=== PATIENT | female | born 1965 ===

== ENCOUNTER 2021-12-16 19:14 | Outpatient (REF) | payer OTHER, SELFPAY ==
[2021-12-16 19:45] LABS: COVID-19 Test Negative (Negative)
== END 2021-12-16 19:15 | disposition home or self-care (01) ==
LOC: HO.LAB 19:14
PROVIDERS: Visit Provider Internal Medicine
DX: Z20.822 Contact with and (suspected) exposure to COVID-19 (principal)
CPT/HCPCS: 87635

== ENCOUNTER 2022-08-07 15:56 | Emergency (ER) | payer BC, OTHER, SELFPAY ==
--- NOTE | ~2022-08-07 | XR_ITS ---
EXAMINATION: XR WRIST, RIGHT XR HAND, RIGHT CLINICAL INFORMATION: Fourth digit pain status post fall. COMPARISON: None available. TECHNIQUE: PA, lateral, and oblique views of the right wrist and PA, lateral, and oblique views of the right hand. An indicator arrow points to the fourth digit. FINDINGS: RIGHT WRIST: The bones and soft tissues are normal. No fracture. Alignment is anatomic. Joint spaces are maintained. No erosions or soft tissue calcifications. RIGHT HAND: The bones and soft tissues are normal. No fracture. Alignment is anatomic. Joint spaces are maintained. No erosions or soft tissue calcifications. XR/XR hand wrist RT IMPRESSION: Normal right hand and wrist. Specifically, the fourth digit is unremarkable.
[2022-08-07 16:03] VITALS: BP 151/81; PULSE 76; RESP 18; TEMP 36.2; O2SAT 97; BMI 30.7
--- NOTE | 2022-08-07 16:05 | ED.EXTPRO ---
HPI - Extremity Problem General Chief complaint: Extremity Injury, Upper Stated complaint: finger injury Time Seen by Provider: 08/07/22 17:08 Source: patient Mode of arrival: ambulatory Limitations: no limitations History of Present Illness HPI Narrative: 56 yold female presents to the ED for right 4th finger pain. patient states she tripped and she tried to break her fall with her hand. patient denies hitting head, loss of conscisouness, or any other trauma. patient denies any other physical complaints. Related Data Previous Rx's Medication Instructions Recorded paroxetine HCl 40 mg tablet 40 mg PO DAILY #90 tabs 08/06/21 naproxen 500 mg tablet 500 mg PO BID PRN pain 10 days #20 08/07/22 tabs Allergies Allergy/AdvReac Type Severity Reaction Status Date / Time egg Allergy Severe Anaphylaxis Verified 08/07/22 16:02 mushroom Allergy Mild tingling, Verified 08/07/22 16:02 rash yeast Allergy Intermediate wheezing, Uncoded 11/05/20 16:05 hard to breathe Review of Systems Review of Systems: Right 4th finger pain. Yes all other systems are reviewed and are negative COUNT INCLUDES [facility] Past Medical History Surgical History No pertinent past surgical history Family History Family History (Updated 12/19/21 @ 07:28 by Michelle Car RN) Mother Colon cancer Father No problems noted. Social History Social History Housing: Apartment Alcohol intake: current Patient Tobacco Use Status: Never used Tobacco e-Cigarette/Vaping Use: Never Used Advance Directives: No Advance Directives Information Provided: No service: No Current occupational status: employed Physical Exam Vital Signs: Vital Signs: Last Vital Signs Temp 97.2 F 08/07/22 16:03 Pulse 76 08/07/22 16:03 Resp 18 08/07/22 16:03 BP 151/81 H 08/07/22 16:03 Pulse Ox 97 08/07/22 16:03 O2 Del Method Room Air 08/07/22 16:03 BMI result Body Mass Index 30.7 Const: General: cooperative, healthy appearing, comfortable, no acute distress, well developed, alert, awake and Physically active Orientation/consciousness: oriented to person, oriented to place, oriented to time and patient oriented x3 HEENT: Head: Yes normal to inspection, Yes No palpable skull fracture present, Yes normocephalic, Yes atraumatic and No abrasion Ears: hearing grossly normal bilaterally, external ears normal, TM's normal bilaterally, EAC's normal, mastoids normal and no periauricular adenopathy Eyes: General: appearance normal, both eyes and all related structures Neck: Neck: Yes normal visual inspection, Yes full ROM, Yes no lymphadenopathy, Yes no meningeal signs, Yes trachea midline, Yes supple, No anterior neck swelling and No tender Chest: Chest palpation & inspection: normal inspection of the chest and normal palpation of entire chest wall Resp: Effort & Inspection: normal respiratory effort and able to speak in complete sentences Auscultation: clear to auscultation bilaterally Cardio: Jugular venous distension: no JVD Heart sounds: S1 normal heart sound present and S2 normal heart sound present GI: Inspection: Yes normal to inspection and No abdominal wall ecchymosis Palpation (GI): Soft to palpation, not firm, nontender, no guarding and not rigid : General: No CVA tenderness and Yes no CVA tenderness Back/Spine/Pelvis: Back: no CVA tenderness, No CVA tenderness and No back tenderness Skin: General skin exam: no rashes or lesions noted and elasticity normal Neuro: General: oriented to person, oriented to place, oriented to time, patient oriented x3, gait normal, tone normal, moves all extremities, Normal light touch and pain sensation, no meningeal signs, no focal motor deficits, CN's II-XI intact bilaterally and normal sensation to monofilament Extrem: General: Yes normal to inspection and Yes full ROM Hand/finger images: 1. Ecchymosis with slight swelling on palpation. Positive for tenderness but negative for crepitus. Capillary refill is intact. Able to move finger but with pain. Whole extremity motor/neuro/medical exam intact Psych: Appearance: grossly normal, well kempt and not disheveled Course Course Course Narrative: RME: 56 yold female presents to the ED for right 4th finger injury after trying to break her fall. denies any head trauma. Finger is swollen Medical Decision Making Medical Decision Making MDM Narrative: 56 yold female presents to the ED for right 4th finger pain while trying to break her fall. Patient denies any head, loss of consciousness, or any other trauma. Patient states she slipped and fell. Right 4th finger slightly swollen and ecchymotic. Rest of physical exam a body normal. X-ray is normal. Patient placed in finger splint. Differential Diagnosis Differential Diagnoses: The differential diagnosis associated with the presentation includes (Finger fracture, finger dislocation, wrist fracture, forearm fracture, brain bleed, skull fracture, cervical spine fracture.) Independent Interpretation I performed an independent interpretation of an: Plain X-Ray Radiology Impression Discussion of test interpretation with radiology: I have reviewed the radiologist's reading. Prescription Management I considered prescription management with: Pain Medication (naproxen) Discharge Plan Discharge Clinical Impression: Finger sprain, Contusion Patient Disposition: Home, Self-Care Instructions: Contusion in Adults (ED), Finger Sprain (ED), R.I.C.E. Treatment (ED) Additional Instructions: your're x-rays came back negative for fracture. Please follow-up with your primary care provider. Return to the ED immediately for worsening pain, increased swelling, redness, pus discharge, foul odor, bluish black discoloration, or any other concerning symptoms. Prescriptions: New naproxen 500 mg tablet 500 mg PO BID PRN (Reason: pain) 10 Days Qty: 20 0RF No Action paroxetine HCl 40 mg tablet 40 mg PO DAILY Qty: 90 3RF Stand Alone Forms: Work/School Release Interventions: ED Discharge Assessment Last Done: 08/07/22 17:29 Discharge Date/Time: 08/07/22 17:30 Print Language: Salvadorean
--- NOTE | 2022-08-07 16:19 | PC.NURSE ---
pt brought back from waiting room, obvious swelling to R ring finger with 6/10 pain
== END 2022-08-07 17:30 | disposition home or self-care (01) ==
PROVIDERS: Emergency Provider Internal Medicine; PCP Family Medicine
DX: S63.614A Unspecified sprain of right ring finger, initial encounter (principal); S60.041A Contusion of right ring finger without damage to nail, initial encounter; M25.531 Pain in right wrist; X58.XXXA Exposure to other specified factors, initial encounter; Y93.9 Activity, unspecified; Y92.9 Unspecified place or not applicable; Y99.9 Unspecified external cause status
CPT/HCPCS: 29130; 73110; 73130; 99282

== ENCOUNTER → 2023-02-08 14:07 | Outpatient (BNVA) | payer BC, OTHER, SELFPAY | PROVIDERS: PCP Family Medicine; Visit Provider Physician Assistant Surgical ==

== ENCOUNTER 2023-05-09 10:15 | Outpatient (AMB) | payer OTHER, BC, SELFPAY ==
[2023-05-09 10:19] VITALS: BP 122/70; PULSE 78; O2SAT 98; BMI 30.2
--- NOTE | 2023-05-09 10:19 | MHC.PC.OV ---
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 Intake Note: Patient is a new patient here to establish care Door Clamp Operator Required: No Allergies egg Allergy (Severe, Verified 05/09/23 10:26) Anaphylaxis mushroom Allergy (Mild, Verified 05/09/23 10:26) tingling, rash yeast Allergy (Intermediate, Uncoded 05/09/23 10:26) wheezing, hard to breathe Medication List - Last Reconciled 05/09/23 by Sha Cloud MD clonazepam 1 mg PO BEDTIME PRN [JUICE PLUS 6 caps PO .QD] magnesium 200 mg PO DAILY [meta relax drink] paroxetine HCl 40 mg PO DAILY [PROBIOTIC 1 cap PO .QD] Tobacco use date assessed: 05/09/23 Dental Screening Dental Screen Date: 05/09/23 Did you have a dental visit in the last 12 months?: Yes Did you have a dental problem in the last 6 months where you did not have access to dental care?: No Was dental information given to patient?: Patient has dentist HPI 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 Review of the notes follows up with orthopedics seen in February 2023 for right 5th toe proximal phalanx fracture conservative management. [facility] Medical History (Updated 05/09/23 @ 11:10 by Sha Cloud MD) Encounter for weight management Class 1 obesity with body mass index (BMI) of 31.0 to 31.9 in adult Laboratory examination ordered as part of a routine general medical examination Seizure PUD (peptic ulcer disease) Immunization counseling Family history of colon cancer Obese Anxiety and depression Surgical History (Updated 02/08/23 @ 14:48 by Laurel Emanuel CMA) Hx of oral surgery Hx of colonoscopy No pertinent past surgical history Family History (Updated 05/09/23 @ 11:12 by Sha Cloud MD) Mother Colon cancer Father Skin cancer Brother Heart attack, Onset Age: 40 Maternal Grandfather Heart attack Sister CAD (coronary artery disease) Social History (Updated 05/09/23 @ 11:13 by Sha Cloud MD) Housing: Apartment Alcohol intake: current Alcohol intake frequency: holidays/special occasions only Comment: once Q 4 months 2 drinks Patient Tobacco Use Status: Never used Tobacco e-Cigarette/Vaping Use: Never Used service: No Current occupational status: employed Cognitive needs: No Hearing needs: No Vision needs: No Questionnaire PHQ-9 Over the last 2 weeks, how often have you been bothered by any of the following problems? 1. Little interest or pleasure in doing things: several days 2. Feeling down, depressed, or hopeless: nearly every day 3. Trouble falling or staying asleep, or sleeping too much: more than half the days 4. Feeling tired or having little energy: more than half the days 5. Poor appetite or overeating: nearly every day 6. Feeling bad about yourself - or that you are a failure or have let yourself or your family down: more than half the days 7. Trouble concentrating on things, such as reading the newspaper or watching television: more than half the days 8. Moving or speaking so slowly that other people could have noticed. Or the opposite - being so fidgety or restless that you have been moving around a lot more than usual: several days 9. Thoughts that you would be better off or of hurting yourself in some way: not at all Total score: 16 Depression Screening Interpretation: Positive Depression Screening Follow-up: Existing condition Depression Screening Done: Yes Source: Developed by Drs. Soren Dennison, Chelsea Mcqueen, Puma Gurrola and colleagues, with an educational libia from [employer]. Thrive Questionnaire Date Thrive assessed: 05/09/23 I am a: Patient What is your living situation today?: I have a steady place to live Within the past 12 months, did the food you bought not last and you didn't have the money to get more?: Never true Within the past 12 months, did you worry whether your food would run out before you got money to buy more?: Never true Do you have trouble paying for medicines?: No Do you have trouble getting transportation to medical appointments?: No Do you have trouble paying your heating and electricity bill?: No Do you have trouble taking care of your child, family member or friend?: No Do you have trouble with day-to-day activities such as bathing, preparing meals, shopping, managing finances, etc.?: No Are you currently unemployed and looking for a job?: No Are you interested in more education?: No Please select the resources that you would like help with: None THRIVE Score: 0 AUDIT C Alcohol Use Questionnaire (AUDIT-C) 1. How often do you have a drink containing alcohol?: Monthly or less 2. How many drinks containing alcohol do you have on a typical day when you are drinking?: 1 or 2 3. How often do you have six or more drinks on one occasion?: Never Total Score: 1 JOHANNY-7 AMB Questionnaire JOHANNY-7 Date JOHANNY - 7 assessed: 05/09/23 Feeling nervous, anxious, or on edge: 1 = Several days Not being able to stop or control worryin = Several days Worrying too much about different things: 1 = Several days Trouble relaxin = Several days Being so restless that it is hard to sit still: 1 = Several days Becoming easily annoyed or irritable: 0 = Not at all Feeling afraid as if something awful might happen: 1 = Several days Total JOHANNY-7 score (0-4 normal; 5-9 mild; 10-14 moderate; 15-21 severe): 6 Source: Developed by Drs. Soren Dennison, Chelsea Mcqueen, Puma Gurrola and colleagues, with an educational libia from [employer]. Physical exam (Primary Care) Vital Signs: Last Vital Signs Pulse 78 05/09/23 10:19 BP 122/70 05/09/23 10:19 Pulse Ox 98 05/09/23 10:19 Oxygen Delivery Method Room Air 05/09/23 10:19 BMI result Body Mass Index 30.2 Tobacco/Smoking Status: Tobacco use Status Tobacco use date assessed 05/09/23 05/09/23 10:21 Patient Tobacco Use Status Never used Tobacco 05/09/23 11:13 e-Cigarette/Vaping Use Never Used 05/09/23 11:13 PHQ-9: PHQ-9 Score PHQ-9: Total score 16 05/09/23 11:21 Depression Screening Interpretation: Positive Depression Screening Follow-up: Existing condition Thrive Assessment: Date of Thrive Assessment Date Thrive assessed 05/09/23 05/09/23 10:21 Const General: alert; No acute distress Eyes Conjunctivae: conjunctivae normal Resp Auscultation: clear to auscultation bilaterally Cardio Rate: regular rate Rhythm: regular rhythm GI Inspection: Yes normal to inspection Extrem General: Yes normal to inspection and No edema Assessment and Plan Assessment & Plan (1) Impaired glucose tolerance: Code(s): R73.02 - Impaired glucose tolerance (oral) Plan: Decrease the amount of carbohydrate intake, pasta, bread, rice and potatoes are all sugar and that is aside from all the sweet stuff, remember that fruits are good but they are Sweet also. (2) Generalized anxiety disorder: Code(s): F41.1 - Generalized anxiety disorder Plan: Continue with therapy (3) Obesity (BMI 30.0-34.9): Code(s): E66.9 - Obesity, unspecified Plan: Diet and exercise (4) Screening for colon cancer: Code(s): Z12.11 - Encounter for screening for malignant neoplasm of colon (5) Breast cancer screening by mammogram: Code(s): Z12.31 - Encounter for screening mammogram for malignant neoplasm of breast (6) Screening for cervical cancer: Code(s): Z12.4 - Encounter for screening for malignant neoplasm of cervix (7) Elevated fasting blood sugar: Code(s): R73.01 - Impaired fasting glucose Orders: Orders Complete Blood Count Auto Diff Today R73.02 - Impaired glucose tolerance (oral) Free T4 (Free Thyroxine) Today R73.02 - Impaired glucose tolerance (oral) Thyroid Stimulating Hormone Today R73.02 - Impaired glucose tolerance (oral) Lipid Panel Today E78.00 - Pure hypercholesterolemia, unspecified, R73.02 - Impaired glucose tolerance (oral) MM tomosynthesis screening BI Today Z12.31 - Encounter for screening mammogram for malignant neoplasm of breast Hemoglobin A1c Today R73.02 - Impaired glucose tolerance (oral) Comprehensive Met. Panel Today R73.02 - Impaired glucose tolerance (oral) Vitamin B12 and Folate Today R73.02 - Impaired glucose tolerance (oral) Vitamin D 25-OH Total Today R73.02 - Impaired glucose tolerance (oral) Referrals Gastroenterology Referral Z12.11 - Encounter for screening for malignant neoplasm of colon Psychiatry Referral F41.1 - Generalized anxiety disorder SMALL PIECE CUTTER Referral Z12.4 - Encounter for screening for malignant neoplasm of cervix Medications: New gabapentin 300 mg PO DAILY PRN 30 caps 0RF Shingles F41.1 - Generalized anxiety disorder clonazepam 1 mg PO BEDTIME PRN 10 tabs 0RF anxiety F41.1 - Generalized anxiety disorder Refilled paroxetine HCl 40 mg PO DAILY 90 tabs 0RF F41.1 - Generalized anxiety disorder Coding Level of Care Code New Pt Level 4 (62884) Diagnoses Impaired glucose tolerance R73.02 Generalized anxiety disorder F41.1 Obesity (BMI 30.0-34.9) E66.9 Screening for colon cancer Z12.11 Breast cancer screening by mammogram Z12.31 Screening for cervical cancer Z12.4 Elevated fasting blood sugar R73.01
== END 2023-05-09 11:34 | disposition home or self-care (01) ==
PROVIDERS: PCP Internal Medicine; Visit Provider Internal Medicine
DX: R73.02 Impaired glucose tolerance (oral) (principal); F41.1 Generalized anxiety disorder; Z68.30 Body mass index [BMI] 30.0-30.9, adult; E66.9 Obesity, unspecified; Z12.11 Encounter for screening for malignant neoplasm of colon; Z12.31 Encounter for screening mammogram for malignant neoplasm of breast; R73.01 Impaired fasting glucose
CPT/HCPCS: 99204; 99214

== ENCOUNTER 2023-05-12 08:05 | Outpatient (REF) | payer OTHER, SELFPAY ==
--- NOTE | ~2023-05-12 | MM_ITS ---
EXAMINATION: MM SCREENING DIGITAL BREAST TOMOSYNTHESIS, BILATERAL CLINICAL INFORMATION: Screening. Asymptomatic. COMPARISON: Mammography: There are no prior mammograms for comparison. TECHNIQUE: Digital breast tomosynthesis is performed in both the craniocaudal and mediolateral oblique views along with computer-aided detection (CAD). Synthesized 2D images are generated from the tomosynthesis. FINDINGS: There are scattered areas of fibroglandular density (ACR BI-RADS breast composition Category b). There are no significant masses, abnormal calcifications, or other abnormalities. MM/MM tomosynthesis screening BI IMPRESSION: No mammographic evidence of malignancy. ASSESSMENT: BI-RADS BI-RADS 1 - Negative RECOMMENDATION: Routine annual mammography screening. 1 year F/U This examination should not preclude the clinical evaluation of a suspicious palpable abnormality. This patient's information was entered into a reminder system with a target due date for their next mammogram.
== END 2023-05-12 08:06 | disposition home or self-care (01) ==
LOC: HO.MAMMO 08:05
PROVIDERS: PCP Internal Medicine; Visit Provider Internal Medicine
DX: Z12.31 Encounter for screening mammogram for malignant neoplasm of breast (principal)
CPT/HCPCS: 77063; 77067

== ENCOUNTER → 2023-05-12 08:30 | Outpatient (BNV) | payer OTHER, SELFPAY | PROVIDERS: PCP Internal Medicine; Visit Provider Radiology Diagnostic Radiology | DX: Z12.31 Encounter for screening mammogram for malignant neoplasm of breast (principal) | CPT/HCPCS: 77063; 77067 ==

== ENCOUNTER 2023-07-28 07:55 | Outpatient (AMB) | payer OTHER, SELFPAY ==
--- NOTE | 2023-07-28 08:01 | A.OFFVIS_ITS ---
Vital Signs 07/28/23 08:02 Height 5 ft 7 in Weight 213 lb 6.519 oz BMI 33.4 BP 146/79 H Blood Pressure Location Lt brachial Position Sitting Pulse 79 Intake Visit Reasons: Colonoscopy Screening Intake Note: Michelle presents in the office as a colonoscopy screening. CC: Due for a colonoscopy buy wants to discuss her hx of anorexia and she has binge eating habits. Yarn Spinner Required: No Allergies egg Allergy (Severe, Verified 07/28/23 08:03) Anaphylaxis mushroom Allergy (Mild, Verified 07/28/23 08:03) tingling, rash yeast Allergy (Intermediate, Uncoded 07/28/23 08:03) wheezing, hard to breathe HPI HPI Colonoscopy Screening: Details: 57 year old? female here today for pre colonoscopy screening.? Patient was sent to us by her PCP.? ? Patient denies any gastrointestinal symptoms in the past or at present.? However patient does admit that she used to suffer do with anorexia and currently patient will occasionally binge eat. Recent weight gain after losing few lb. Patient denies any melena, hematochezia, unintentional weight loss or ribbon like stools. Patient's mother was diagnosed with CRC in her 60s. ? Denies history of difficulty with sedation or anesthesia in the past.? Negative for history of sleep apnea.? Denies any history of cardiac, renal, pulmonary, or hepatic disease.?? No history of infectious? diseases like hepatitis A, B, C, HIV or tuberculosis.? Patient is not on any anticoagulation [facility] Medical History Encounter for weight management Class 1 obesity with body mass index (BMI) of 31.0 to 31.9 in adult Laboratory examination ordered as part of a routine general medical examination Seizure PUD (peptic ulcer disease) Immunization counseling Family history of colon cancer Obese Anxiety and depression Surgical History History of esophagogastroduodenoscopy (EGD) Hx of oral surgery Hx of colonoscopy No pertinent past surgical history Family History Mother Colon cancer Father Skin cancer Brother Heart attack, Onset Age: 40 Maternal Grandfather Heart attack Sister CAD (coronary artery disease) Social History Housing: Apartment Alcohol intake: current Alcohol intake frequency: holidays/special occasions only Comment: once Q 4 months 2 drinks Patient Tobacco Use Status: Never used Tobacco e-Cigarette/Vaping Use: Never Used service: No Current occupational status: employed Cognitive needs: No Hearing needs: No Vision needs: No Review of Systems Const Denies weight gain and Denies weight loss ENT Reports no additional complaints, Denies dysphagia and Denies odynophagia Card Reports no additional complaints Resp Reports no additional complaints GI Denies abdominal pain, Denies belching, Denies melena, Denies bloating, Denies change in bowel habits, Denies dysphagia, Denies excessive flatus, Denies dyspepsia, Denies heartburn, Denies diarrhea, Denies loose stools, Denies nausea, Denies odynophagia and Denies vomiting Reports no additional complaints Musc Reports no additional complaints Neuro Reports no additional complaints Psych Reports no additional complaints Endo Reports no additional complaints Physical Exam Vital Signs: Last Vital Signs Pulse 79 07/28/23 08:02 BP 146/79 H 07/28/23 08:02 BMI result Body Mass Index 33.4 Const General: healthy appearing and no acute distress Nutritional Appearance: obese Orientation/consciousness: patient oriented x3 Resp Effort & Inspection: normal respiratory effort, able to speak in complete sentences, no tracheal deviation and symmetric chest movement Auscultation: clear to auscultation bilaterally Cardio Rate: regular rate GI Inspection: Yes normal to inspection, No distended and Yes obesity Palpation (GI): Soft to palpation, not firm, nontender and No hepatosplenomegaly present Auscultation: normal bowel sounds General: Yes no CVA tenderness Back/Spine/Pelvis Back: no CVA tenderness Skin General skin exam: elasticity normal, turgor normal and dry skin Neuro General: patient oriented x3 Psych Appearance: grossly normal Mental Status: mental status grossly normal Assessment & Plan Assessment & Plan (1) Screening for colon cancer: Code(s): Z12.11 - Encounter for screening for malignant neoplasm of colon Category: Medical Plan Patient denies any GI, cardiac or respiratory symptoms.? Denies any issues with anesthesia in the past.? Denies any history of sleep apnea.? No history infectious diseases in the past or present.? Not on any anticoagulation therapy.? Mother diagnosed in her 60's with CRC. Patient denies melena, hematochezia, unintentional weight loss or ribbon like stools.? Discussed at length the pre-procedure,? prep, diet & medications as well as what to expect prior, during and after the procedure.?? Stressed the importance of good bowel prep.? Recommended the use of Vaseline or Calmoseptine OTC & baby wipes with bowel movements to promote comfort.? ?Patient verbalizes understanding and agrees to plan of care.? She was given the opportunity to ask questions and all questions answered.? We will see her after the procedure.? Medications: New bisacodyl (Dulcolax (bisacodyl)) take 4 tabs at noon the day before your colonoscopy 20 mg (4 x 5 mg) PO ONCE 4 tabs 0RF 1 day Z12.11 - Encounter for screening for malignant neoplasm of colon polyethylene glycol 3350 (Miralax) As directed by gastroenterology department at [facility] 238 grams PO ONCE 238 grams 0RF Z12.11 - Encounter for screening for malignant neoplasm of colon Coding Level of Care Code New Pt Level 3 (64995) Diagnoses Screening for colon cancer Z12.11 Time Spent (min) 40 Comment 30 minutes spent with patient and additional 10 minutes spent reviewing her records
[2023-07-28 08:02] VITALS: BP 146/79; PULSE 79; BMI 33.4
== END 2023-07-28 08:52 | disposition home or self-care (01) ==
PROVIDERS: PCP Internal Medicine; Visit Provider Nurse Practitioner Family
DX: Z01.818 Encounter for other preprocedural examination (principal); Z12.11 Encounter for screening for malignant neoplasm of colon
CPT/HCPCS: S0285

== ENCOUNTER → 2023-07-28 07:55 | Outpatient (BNVA) | payer OTHER, SELFPAY | PROVIDERS: PCP Internal Medicine; Visit Provider Nurse Practitioner Family ==

== ENCOUNTER 2024-01-24 11:39 | Outpatient (REF) | payer OTHER, SELFPAY ==
[2024-01-24 12:20] LABS: MANUAL DIFF FLAG NO
[2024-01-24 12:54] LABS: Basophils Absolute Auto 0.1 X10*3/uL (0.0-0.2); Basophils Percent Auto 1.2 % (0-2); Eosinophils Absolute Auto 0.3 X10*3/uL (0.0-0.4); Eosinophils Percent Auto 5.4 % (0-4); Hematocrit 41.6 % (37.0-47.0); Hemoglobin 14.8 g/dl (12.0-16.0); Imm Gran Abs Auto 0.01 X10*3/uL (0.00-0.03); Imm Gran Pct Auto 0.2 % (0.0-0.4); Lymphocytes Absolute Auto 1.8 X10*3/uL (1.2-4.9); Lymphocytes Percent Auto 30.2 % (20-40); Mean Corpuscular HGB Conc 35.6 g/dl (31.0-35.0); Mean Corpuscular Hemoglobin 33.1 pg (27.0-33.0); Mean Corpuscular Volume 93.1 fL (80.0-98.0); Mean Platelet Volume 11.4 fL (9.4-12.3); Monocytes Absolute Auto 0.4 X10*3/uL (0.1-1.2); Monocytes Percent Auto 7.3 % (2-11); Neutrophils Absolute Auto 3.3 x10*3/uL (2.0-8.3); Neutrophils Percent Auto 55.7 % (45-73); Platelet Count 142 X10*3/uL (160-400); Red Blood Count 4.47 X10*6/uL (4.20-5.50); Red Cell Distribution Width 12.6 % (11.0-16.0); White Blood Count 5.9 X10*3/uL (4.8-10.8)
[2024-01-24 13:06] LABS: Estimated Average Glucose 100 mg/dL; Hemoglobin A1C 117.1688 umol/L; Hemoglobin A1c % 5.1 % (<6.0); Total Hemoglobin (HGBA1C) 3679.5201 umol/L
[2024-01-24 13:42] LABS: Alanine Aminotransferase 31 U/L (0-31); Albumin Level 4.1 g/dL (3.5-5.0); Alkaline Phosphatase 108 U/L (39-117); Anion Gap 12 (12-20); Aspartate Amino Transferase 31 U/L (5-31); Bilirubin Total 0.5 mg/dL (0.0-1.0); Blood Urea Nitrogen 15 mg/dL (9-16); Calcium 9.5 mg/dL (8.4-10.2); Carbon Dioxide 24 mmol/L (22-29); Chloride 104 mmol/L (96-108); Cholesterol 241 mg/dL (<200); Estimated Glomerular Filt Rate > 60; Glucose Random 99 mg/dL (60-115); HDL Cholesterol 58 mg/dL (>40); LDL Cholesterol Calculated 161 mg/dL (<100); Potassium 4.1 mmol/L (3.3-5.1); Sodium 136 mmol/L (135-145); Total Protein 7.5 g/dL (6.5-8.0); Triglycerides 112 mg/dL (<150)
[2024-01-24 13:47] LABS: Thyroid Stimulating Hormone 4.62 uIU/mL (0.32-4.0); Vitamin D 25-OH Total 11.8 ng/mL (>30)
[2024-01-24 13:52] LABS: Folate 9.8 ng/mL (> or = 4.0); Vitamin B12 214 pg/mL (200-900)
== END 2024-01-24 11:40 | disposition home or self-care (01) ==
LOC: HO.LAB 11:39
PROVIDERS: PCP Internal Medicine; Visit Provider Internal Medicine
DX: R73.02 Impaired glucose tolerance (oral) (principal); E78.00 Pure hypercholesterolemia, unspecified
CPT/HCPCS: 36415; 80053; 80061; 82306; 82607; 82746; 83036; 84439; 84443; 85025

== ENCOUNTER 2024-01-26 13:40 | Outpatient (AMB) | payer OTHER, SELFPAY ==
--- NOTE | 2024-01-26 13:43 | A.OFFPC_ITS ---
Vital Signs 01/26/24 13:44 Height 5 ft 7 in Weight 207 lb 2 oz BMI 32.4 BP 132/76 Blood Pressure Location Lt brachial Position Sitting Pulse 91 Pulse Source Pulse Oximeter Pulse Oximetry (%) 96 Oxygen Delivery Method Room Air Intake Visit Reasons: PE Intake Note: Patient is here today for a physical. Pt decline flu shot today. Tape Coater Required: No Winch Runner: Not Required per policy Accompanied by: Self / Same As Patient Allergies egg Allergy (Severe, Verified 01/26/24 13:44) Anaphylaxis mushroom Allergy (Mild, Verified 01/26/24 13:44) tingling, rash metronidazole [From Flagyl] Adverse Reaction (Intermediate, Unverified 01/26/24 13:54) Hives yeast Allergy (Intermediate, Uncoded 01/26/24 13:44) wheezing, hard to breathe Medication List - Last Reconciled 01/26/24 by Sha Cloud MD bisacodyl (Dulcolax (bisacodyl)) 20 mg (4 x 5 mg) PO ONCE 1 day clonazepam 1 mg PO BEDTIME PRN gabapentin 300 mg PO DAILY PRN [JUICE PLUS 6 caps PO .QD] paroxetine HCl 40 mg PO DAILY polyethylene glycol 3350 (Miralax) 238 grams PO ONCE Tobacco use date assessed: 01/26/24 Dental Screening Dental Screen Date: 05/09/23 HPI PE HPI Details 58-year-old obese female with impaired g lucose tolerance generalized anxiety disorder coming in for follow-up. Last seen in 05/09/2023. Review of the notes patient was in the Urgent Care 11/15/2023 for right shoulder pain and right wrist pain for couple of months. Patient was prescribed diclofenac potassium 3 times a day. (not able to take) Patient has seen gastroenterology in July and planned colon test. r shouilder pain seen ortho [facility] Medical History (Updated 01/26/24 @ 18:41 by Sha Cloud MD) Breast cancer screening by mammogram Encounter for weight management Class 1 obesity with body mass index (BMI) of 31.0 to 31.9 in adult Laboratory examination ordered as part of a routine general medical examination Seizure PUD (peptic ulcer disease) Immunization counseling Family history of colon cancer Obese Anxiety and depression Surgical History History of esophagogastroduodenoscopy (EGD) Hx of oral surgery Hx of colonoscopy No pertinent past surgical history Family History Mother Colon cancer Father Skin cancer Brother Heart attack, Onset Age: 40 Maternal Grandfather Heart attack Sister CAD (coronary artery disease) Social History Housing: Apartment Alcohol intake: current Alcohol intake frequency: holidays/special occasions only Comment: once Q 4 months 2 drinks Patient Tobacco Use Status: Never used Tobacco e-Cigarette/Vaping Use: Never Used Second Hand Smoke Exposure: No service: No Current occupational status: employed Cognitive needs: No Hearing needs: No Vision needs: No Questionnaire PHQ-9 Over the last 2 weeks, how often have you been bothered by any of the following problems? 1. Little interest or pleasure in doing things: more than half the days 2. Feeling down, depressed, or hopeless: several days 3. Trouble falling or staying asleep, or sleeping too much: several days 4. Feeling tired or having little energy: several days 5. Poor appetite or overeating: several days 6. Feeling bad about yourself - or that you are a failure or have let yourself or your family down: not at all 7. Trouble concentrating on things, such as reading the newspaper or watching television: not at all 8. Moving or speaking so slowly that other people could have noticed. Or the opposite - being so fidgety or restless that you have been moving around a lot more than usual: not at all 9. Thoughts that you would be better off or of hurting yourself in some way: not at all Total score: 6 Depression Screening Interpretation: Positive Depression Screening Done: Yes Source: Developed by Drs. Soren Dennison, Chelsea Mcqueen, Puma Gurrola and colleagues, with an educational libia from [employer]. Thrive Questionnaire Date Thrive assessed: 01/26/24 I am a: Patient AUDIT C Alcohol Use Questionnaire (AUDIT-C) 1. How often do you have a drink containing alcohol?: Monthly or less 2. How many drinks containing alcohol do you have on a typical day when you are drinking?: 1 or 2 3. How often do you have six or more drinks on one occasion?: Never Total Score: 1 JOHANNY-7 AMB Questionnaire JOHANNY-7 Date JOHANNY - 7 assessed: 05/09/23 Source: Developed by Drs. Soren Dennison, Chelsea Mcqueen, Puma Gurrola and colleagues, with an educational ilbia from [employer]. Review of Systems Const Denies poor appetite and Denies weakness Eyes Denies no additional complaints ENT Reports Normal hearing present, Denies dizziness, Denies nasal congestion, Denies tinnitus and Denies sore throat Card Denies chest pain, Denies syncope, Denies rapid heart rate and Denies dyspnea Resp Denies cough and Denies dyspnea GI Denies change in stool character, Reports constipation, Denies diarrhea, Denies nausea and Denies vomiting Denies urinary frequency, Denies difficulty voiding and Denies dysuria Neuro Reports Normal hearing present, Denies confusion, Denies dizziness, Denies syncope and Denies weakness Psych Denies confusion Physical exam (Primary Care) Vital Signs: Last Vital Signs Pulse 91 01/26/24 13:44 BP 132/76 01/26/24 13:44 Pulse Ox 96 01/26/24 13:44 Oxygen Delivery Method Room Air 01/26/24 13:44 BMI result Body Mass Index 32.4 Tobacco/Smoking Status: Tobacco use Status Tobacco use date assessed 01/26/24 01/26/24 13:50 Patient Tobacco Use Status Never used Tobacco 01/26/24 13:50 e-Cigarette/Vaping Use Never Used 01/26/24 13:50 PHQ-9: PHQ-9 Score PHQ-9: Total score 6 01/26/24 13:53 Depression Screening Interpretation: Positive Thrive Assessment: Date of Thrive Assessment Date Thrive assessed 01/26/24 01/26/24 13:50 Const General: No confusion Orientation/consciousness: No confusion HENMT Head: Yes normocephalic Ears: external ears normal and TM's normal bilaterally Face and sinus: Yes normal facial exam Mouth: moist mucous membranes Throat: Yes tonsils normal Eyes Conjunctivae: conjunctivae normal Pupils: Equal, round and reactive pupils present and Pupil accommodation reflex normal Direct Ophthalmoscopy: normal light reflex Neck Neck: No lymphadenopathy Thyroid: Thyroid normal Chest Chest palpation & inspection: normal inspection of the chest Resp Effort & Inspection: normal respiratory effort and no audible wheezes Auscultation: clear to auscultation bilaterally, no crackles, no wheezes and lung sounds not diminished Cardio Rate: regular rate Rhythm: regular rhythm Peripheral pulses: radial pulses present and dorsalis pedis present GI Palpation (GI): no masses Auscultation: normal bowel sounds and normoactive bowel sounds Rectal Exam - Female: deferred Skin General skin exam: no rashes or lesions noted Rashes: no rashes Neuro General: No confusion Cranial nerves: Yes Equal, round and reactive pupils present and Yes Normal hearing present Cognition (Neuro): normal cognition Gait exam (Neuro): Normal gait present Motor exam (neuro): 5/5 motor strength present throughout Deep tendon reflexes (DTR's): Right brachioradialis reflex intensity grade: 2+, Left brachioradialis reflex intensity grade: 2+, Right patellar reflex intensity grade: 2+ and Left patellar reflex intensity grade: 2+ Extrem General: No edema Coding Level of Care Code Est Pt Prev Care 40-64y(65110) Diagnoses Annual physical exam Z00.00 Pure hypercholesterolemia E78.00 Hyperlipidemia type: pure hypercholesterolemia Vitamin D deficiency E55.9 Generalized anxiety disorder F41.1 Screening for colon cancer Z12.11 Obesity (BMI 30.0-34.9) E66.9 Acute pain of right shoulder M25.511 Chronicity: acute Acute right-sided low back pain without sciatica M54.50 Chronicity: acute Back pain laterality: right Sciatica presence: without sciatica Assessment & Plan Assessment & Plan (1) Annual physical exam: Code(s): Z00.00 - Encounter for general adult medical examination without abnormal findings Category: Medical Plan: Patient is advised to eat healthy, keep well hydrated, keep active and have adequate sleep. (2) Hyperlipidemia: Code(s): E78.5 - Hyperlipidemia, unspecified Category: Medical Qualifiers: Hyperlipidemia type: pure hypercholesterolemia Qualified Code(s): E78.00 - Pure hypercholesterolemia, unspecified Plan: Avoid fried foods, chicken skin, eggs, butter margarine, pastries and meat. Be it pork or beef they have a lot of cholesterol LDL goal of less than 130 and triglyceride of less than 150. (3) Vitamin D deficiency: Code(s): E55.9 - Vitamin D deficiency, unspecified Category: Medical Plan: Discussed about vitamin-D 7013-3252 units once a day (4) Generalized anxiety disorder: Code(s): F41.1 - Generalized anxiety disorder Category: Medical Plan: Continue with present medication (5) Screening for colon cancer: Code(s): Z12.11 - Encounter for screening for malignant neoplasm of colon Category: Medical Plan: Patient has met with Gastroenterology and planned colonoscopy. (6) Obesity (BMI 30.0-34.9): Code(s): E66.9 - Obesity, unspecified Category: Medical Plan: Continue with diet and exercise (7) Shoulder pain, right: Code(s): M25.511 - Pain in right shoulder Category: Medical Qualifiers: Chronicity: acute Qualified Code(s): M25.511 - Pain in right shoulder Plan: Continue keeping active with shoulder exercise (8) Low back pain: Code(s): M54.50 - Low back pain, unspecified Category: Medical Qualifiers: Chronicity: acute Back pain laterality: right Sciatica presence: without sciatica Qualified Code(s): M54.50 - Low back pain, unspecified Plan: X-ray requested of the sacroiliac joint Orders: Orders Complete Blood Count Auto Diff 3 Months R73.02 - Impaired glucose tolerance (oral) Comprehensive Met. Panel 3 Months R73.02 - Impaired glucose tolerance (oral) Thyroid Stimulating Hormone 3 Months R73.02 - Impaired glucose tolerance (oral) Vitamin B12 and Folate 3 Months R73.02 - Impaired glucose tolerance (oral) Vitamin D 25-OH Total 3 Months R73.02 - Impaired glucose tolerance (oral) XR sacroiliac joint min 3V Today M54.50 - Low back pain, unspecified Free T4 (Free Thyroxine) 3 Months R73.02 - Impaired glucose tolerance (oral) Lipid Panel 3 Months E78.00 - Pure hypercholesterolemia, unspecified, R73.02 - Impaired glucose tolerance (oral) Hemoglobin A1c 3 Months R73.02 - Impaired glucose tolerance (oral) Referrals Gastroenterology Referral Z12.11 - Encounter for screening for malignant neoplasm of colon [employer] Referral Z12.4 - Encounter for screening for malignant neoplasm of cervix Medications: New cholecalciferol (vitamin D3) 1,250 mcg PO QWEEK 12 caps 0RF E55.9 - Vitamin D deficiency, unspecified Refilled gabapentin 300 mg PO DAILY PRN 60 caps 0RF Shingles F41.1 - Generalized anxiety disorder
[2024-01-26 13:44] VITALS: BP 132/76; PULSE 91; O2SAT 96; BMI 32.4
== END 2024-01-26 14:33 | disposition home or self-care (01) ==
PROVIDERS: PCP Internal Medicine; Visit Provider Internal Medicine
DX: Z00.00 Encounter for general adult medical examination without abnormal findings (principal); E78.00 Pure hypercholesterolemia, unspecified; E66.9 Obesity, unspecified; Z68.32 Body mass index [BMI] 32.0-32.9, adult; E55.9 Vitamin D deficiency, unspecified; F41.1 Generalized anxiety disorder; Z12.11 Encounter for screening for malignant neoplasm of colon; M25.511 Pain in right shoulder; M54.50 Low back pain, unspecified

== ENCOUNTER 2024-01-27 08:07 | Outpatient (REF) | payer OTHER, SELFPAY | END 2024-01-27 08:08 | disposition home or self-care (01) | LOC: HO.XRAY 08:07 | PROVIDERS: PCP Internal Medicine; Visit Provider Internal Medicine | DX: M54.50 Low back pain, unspecified (principal) | CPT/HCPCS: 72202 ==

== ENCOUNTER 2024-03-18 14:03 | Outpatient (RCR) | payer OTHER, SELFPAY | END 2024-04-23 09:31 | disposition home or self-care (01) | LOC: HO.PT 14:03 | PROVIDERS: PCP Internal Medicine; Visit Provider Physician Assistant Surgical | DX: M75.41 Impingement syndrome of right shoulder (principal) | CPT/HCPCS: 97110; 97140; 97161; 97530 ==

== ENCOUNTER 2024-05-24 07:36 | Outpatient (REF) | payer OTHER, SELFPAY | END 2024-05-24 07:37 | disposition home or self-care (01) | LOC: HO.MAMMO 07:36 | PROVIDERS: PCP Internal Medicine; Visit Provider Internal Medicine | DX: Z12.31 Encounter for screening mammogram for malignant neoplasm of breast (principal) | CPT/HCPCS: 77063; 77067 ==

== ENCOUNTER → 2024-05-24 08:30 | Outpatient (BNV) | payer OTHER, SELFPAY | PROVIDERS: PCP Internal Medicine; Visit Provider Internal Medicine | DX: Z12.31 Encounter for screening mammogram for malignant neoplasm of breast (principal) | CPT/HCPCS: 77063; 77067 ==

== ENCOUNTER 2024-06-27 08:59 | Day surgery (SDC) | payer OTHER, SELFPAY ==
[2024-06-25 12:32] VITALS: BMI 32.4
--- NOTE | 2024-06-26 12:04 | P.CONAN_ITS ---
Documented by User: Eusebia Suarez NP 06/26/24 12:05 HPI - Anesthesia Eval Consult details Narrative: 58yo F for Colonoscopy PMFSH Active Problems Active Problems: All Active Problems Low back pain (Acute) Shoulder pain, right (Acute) Vitamin D deficiency (Acute) Hyperactivity (Acute) Allergic rhinitis (Acute) Obesity (BMI 30.0-34.9) (Acute) Generalized anxiety disorder (Acute) Impaired glucose tolerance (Acute) Hyperlipidemia (Acute) Foot fracture, right (Acute) Screening for colon cancer (Acute) Screening for cervical cancer (Acute) Elevated fasting blood sugar (Acute) Annual physical exam (Acute) Past Medical History Medical History Impaired glucose tolerance Hyperlipidemia Seizure PUD (peptic ulcer disease) Family history of colon cancer Class 1 obesity with body mass index (BMI) of 31.0 to 31.9 in adult Obese Anxiety and depression Family History Family History Mother Colon cancer Father Skin cancer Brother Heart attack, Onset Age: 40 Maternal Grandfather Heart attack Sister CAD (coronary artery disease) Surgical History Surgical History History of esophagogastroduodenoscopy (EGD) Hx of oral surgery Hx of colonoscopy Social History Social History Housing: Apartment Alcohol intake: current Alcohol intake frequency: holidays/special occasions only Comment: once Q 4 months 2 drinks Patient Tobacco Use Status: Never used Tobacco e-Cigarette/Vaping Use: Never Used Second Hand Smoke Exposure: No Use of substances other than those prescribed or required for medical reasons: No Are you DNR?: No Advance Directives: No Advance Directives Information Provided: Yes service: No Current occupational status: employed Cognitive needs: No Hearing needs: No Vision needs: No Meds Allergies Allergy/AdvReac Type Severity Reaction Status Date / Time egg Allergy Severe Anaphylaxis Verified 06/27/24 09:09 Yeast Allergy Intermediate wheezing/SO Verified 06/27/24 09:09 B mushroom Allergy Mild tingling, Verified 06/27/24 09:09 rash metronidazole [From Flagyl] AdvReac Intermediate Hives Verified 06/27/24 09:09 Home Medications ?Medication ?Instructions ?Recorded ?Confirmed ?Last Taken ?Type JUICE PLUS 6 cap PO .QD 05/09/23 01/26/24 Unknown History Exam Height,Weight and Vital Signs: Height 5 ft 7 in Weight 93.894 kg Assessment and Plan Assessment Anesthesia Assessment: Chart Reviewed Documented by User: Crystal Haji MD 06/27/24 10:25 [facility] Past Medical History Medical History Impaired glucose tolerance Hyperlipidemia Seizure PUD (peptic ulcer disease) Family history of colon cancer Class 1 obesity with body mass index (BMI) of 31.0 to 31.9 in adult Obese Anxiety and depression Family History Family History Mother Colon cancer Father Skin cancer Brother Heart attack, Onset Age: 40 Maternal Grandfather Heart attack Sister CAD (coronary artery disease) Family history of problems with anesthesia: No Surgical History Surgical History History of esophagogastroduodenoscopy (EGD) Hx of oral surgery Hx of colonoscopy History of Problems with Anesthesia: No Social History Social History Housing: Apartment Alcohol intake: current Alcohol intake frequency: holidays/special occasions only Comment: once Q 4 months 2 drinks Patient Tobacco Use Status: Never used Tobacco e-Cigarette/Vaping Use: Never Used Second Hand Smoke Exposure: No Use of substances other than those prescribed or required for medical reasons: No Are you DNR?: No Advance Directives: No Advance Directives Information Provided: Yes service: No Current occupational status: employed Cognitive needs: No Hearing needs: No Vision needs: No Meds Allergies Allergy/AdvReac Type Severity Reaction Status Date / Time egg Allergy Severe Anaphylaxis Verified 06/27/24 09:09 Yeast Allergy Intermediate wheezing/SO Verified 06/27/24 09:09 B mushroom Allergy Mild tingling, Verified 06/27/24 09:09 rash metronidazole [From Flagyl] AdvReac Intermediate Hives Verified 06/27/24 09:09 Home Medications ?Medication ?Instructions ?Recorded ?Confirmed ?Last Taken ?Type JUICE PLUS 6 cap PO .QD 05/09/23 01/26/24 Unknown History Exam Airway Mallampati Class: II TM Dist: >3cm Neck ROM: Full Assessment and Plan Assessment Anesthesia Assessment: Anesthesia Plan Discussed Final Anesthetic Review Family History of Problems with Anesthesia: No History of Problems with Anesthesia: No NPO: Yes ASA Class: II Final Preanesthetic Review: No Changes in Pt Med Stat, Meds/Allgs Chart Reviewed, Consent Obtained/Reviewed and Anes Risks/Benef Reviewed Patient Risk: Intermediate Procedure Risk: Low Anesthetic Plan Anesthetic Plan: TIVA Disposition: Standard PACU
[2024-06-27 09:10] VITALS: BMI 33.2
[2024-06-27 09:14] VITALS: BP 143/74; PULSE 93; RESP 15; TEMP 36.1; O2SAT 96
[2024-06-27] MEDS: Lactated Ringers 1,000 ML 100 ML IVCONT (09:29)
--- NOTE | 2024-06-27 09:36 | MHC.SHP ---
Pre-Procedural Eval Section A - 24 Hr Update-Section A only Date of Service: 06/27/24 Section B - Complete if H&P > 30 days Chief Complaint: screening Relevant Family History (Specify if Yes): No Relevant Social History: None Present Medications: see Short Stay Collaborative assessment Medical History: Significant History (Impaired glucose tolerance Hyperlipidemia Seizure PUD (peptic ulcer disease) Family history of colon cancer Class 1 obesity with body mass index (BMI) of 31.0 to 31.9 in adult Obese Anxiety and depression) History of Previous Operations: Relevant previous surgery/procedure and date(s) (History of esophagogastroduodenoscopy (EGD) Hx of oral surgery Hx of colonoscopy) Allergies: Allergies Allergy/AdvReac Type Severity Reaction Status Date / Time egg Allergy Severe Anaphylaxis Verified 06/27/24 09:09 Yeast Allergy Intermediate wheezing/SO Verified 06/27/24 09:09 B mushroom Allergy Mild tingling, Verified 06/27/24 09:09 rash metronidazole [From Flagyl] AdvReac Intermediate Hives Verified 06/27/24 09:09 Review of Systems Sugical H&P ROS: Negative: Constitution, Cardiovascular, Respiratory, Neurological, Psychiatric, Hem-Onc, Allergic/Immunologic, Gastrointestinal, Genitourinary, Musculoskeletal, Integumentary, Endocrine and Eyes/Ears/Nose/Throat Exam Surgical H&P Exam: Normal: HEENT, Normal: Heart, Normal: Lungs, Normal: Extremities, Normal: Abdomen, Normal: Skin and Normal: Neurological Plan Diagnosis/Plan: Unchanged I have reviewed the history and physical and performed a pertinent physical examination on my patient. No changes have occurred unless specified. Time Spent With Patient Time: Total time managing care of this patient today ____ minutes.
--- NOTE | 2024-06-27 10:50 | HO.OPN-COLON ---
Colonoscopy Operative Note Operative Note Date of Service: 06/27/24 Narrative: Operative Information Procedure Description: Colonoscopy Indication: screening Anesthesia: MAC COLONOSCOPY Instrument: Olympus variable stiffness pediatric scope 190L Colonoscopy Monitoring: Vital signs and clinical assessment, continuous EKG monitoring, Pulse oximetry, Carbon Dioxide monitoring and blood pressure monitoring were done throughout the procedure. Colon withdrawal time was 12 minutes. Procedure: The patient was placed in the left lateral decubitis position and pre-procedure medications were administered. After a digital rectal examination of the ano-rectum, the video colonoscope was inserted into the rectum and advanced through the colon to the cecum/TI. The colonoscope was slowly withdrawn in a retrograde panoramic fashion and the colon mucosa was carefully examined including a retroflexed view of the rectum. Findings and interventions are described below. Procedure Difficulty: easy Findings: Terminal Ileum-normal Cecum:normal right sided retroflexion- normal Ascending Colon: normal Transverse Colon -normal Descending Colon:normal Sigmoid Colon: normal Rectum: Retroflexion with small internal hemorrhoids seen, grade I Anorectum - normal Intervention: none Colon preparation: [place] Bowel Preparation Scale Right colon; 2 Transverse colon: 2 Left colon; 3 (0 = Unprepared colon segment with mucosa not seen due to solid stool that cannot be cleared. 1 = Portion of mucosa of the colon segment seen, but other areas of the colon segment not well seen due to staining, residual stool and/or opaque liquid. 2 = Minor amount of residual staining, small fragments of stool and/or opaque liquid, but mucosa of colon segment seen well. 3 = Entire mucosa of colon segment seen well with no residual staining, small fragments of stool or opaque liquid) Impression and Post Procedure Diagnosis: internal hemorrhoids Plan: High fiber diet leaflet Avoid straining at stool, epsom salts and sitz bath, anusol supps or cream Repeat Colonoscopy in 10 years or earlier if clinically indicated Above findings were reviewed with the patient and relevant handouts were provided if indicated.
[2024-06-27 10:54] VITALS: BP 123/76; PULSE 80; RESP 12; TEMP 36.1; O2SAT 97
[2024-06-27 11:09] VITALS: BP 116/72; PULSE 77; RESP 20; TEMP 36.8; O2SAT 95
== END 2024-06-27 12:16 | disposition home or self-care (01) ==
PROVIDERS: PCP Internal Medicine; Visit Provider Internal Medicine Gastroenterology
PROC: 0DJD8ZZ Inspection of Lower Intestinal Tract, Via Natural or Artificial Opening Endoscopic (ICD-10-PCS; CPT 45378; principal; 2024-06-27 11:40)
DX: Z12.11 Encounter for screening for malignant neoplasm of colon (principal); Z80.0 Family history of malignant neoplasm of digestive organs; K64.0 First degree hemorrhoids; K27.9 Peptic ulcer, site unspecified, unspecified as acute or chronic, without hemorrhage or perforation; E66.9 Obesity, unspecified; Z68.33 Body mass index [BMI] 33.0-33.9, adult; F50.819 Binge eating disorder, unspecified; R56.9 Unspecified convulsions; F41.9 Anxiety disorder, unspecified; Z79.899 Other long term (current) drug therapy; Z91.012 Allergy to eggs; Z91.018 Allergy to other foods
CPT/HCPCS: 45378; J2003; J2704

== ENCOUNTER → 2024-06-27 08:59 | Outpatient (BNV) | payer OTHER, SELFPAY | PROVIDERS: PCP Internal Medicine; Visit Provider Internal Medicine Gastroenterology | DX: Z12.11 Encounter for screening for malignant neoplasm of colon (principal); Z80.0 Family history of malignant neoplasm of digestive organs; K64.0 First degree hemorrhoids | CPT/HCPCS: 45378 ==

== ENCOUNTER 2025-02-06 11:20 | Outpatient (AMB) | payer OTHER, SELFPAY ==
[2025-02-06 11:27] VITALS: BP 132/78; PULSE 60; O2SAT 95; BMI 33.4
--- NOTE | 2025-02-06 11:27 | A.OFFPC_ITS ---
Vital Signs 02/06/25 11:27 Height 5 ft 7 in Weight 213 lb BMI 33.4 BP 132/78 Blood Pressure Location Lt brachial Position Sitting Pulse 60 Pulse Source Pulse Oximeter Pulse Oximetry (%) 95 Oxygen Delivery Method Room Air Intake Visit Reasons: follow up/discuss labs RE Allergies egg Allergy (Severe, Verified 02/06/25 11:27) Anaphylaxis Yeast Allergy (Intermediate, Verified 02/06/25 11:27) wheezing/SOB mushroom Allergy (Mild, Verified 02/06/25 11:27) tingling, rash metronidazole (From Flagyl) Adverse Reaction (Intermediate, Verified 02/06/25 11:27) Hives Medication List - Last Reconciled 02/06/25 by Sha Cloud MD bisacodyl (Dulcolax (bisacodyl)) 20 mg (4 x 5 mg) PO ONCE 1 day cholecalciferol (vitamin D3) 1,250 mcg PO QWEEK clonazepam 1 mg PO BEDTIME PRN gabapentin 300 mg PO DAILY PRN paroxetine HCl 40 mg PO DAILY Tobacco use date assessed: 02/06/25 Dental Screening Dental Screen Date: 02/06/25 Did you have a dental visit in the last 12 months?: Yes Did you have a dental problem in the last 6 months where you did not have access to dental care?: No Was dental information given to patient?: Patient has dentist HPI HPI Comments History of Present Illness Details History of Present Illness The patient is a 59-year-old individual presenting for follow-up after the last visit in January 2024. The patient has a history of right shoulder and lower back pain, with a prior lower back X-ray showing no significant SI joint dysfunction. Lab work from January 2024 revealed hypercholesterolemia with a total ch olesterol of 241 mg/dL, LDL of 161 mg/dL, and HDL of 58 mg/dL. Other findings included mild thrombocytopenia with a platelet count of 142, low vitamin B12 at 214, low vitamin D at 11.4, and a mildly elevated TSH of 4.62. Electrolytes, renal function, liver function, and blood sugar were normal. The patient reports having had two episodes of herpes zoster (shingles) in the past year, for which the patient uses gabapentin during flare-ups. Past medical history is significant for generalized anxiety disorder, treated with paroxetine for approximately 20 years, and a history of anorexia nervosa years ago. 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 Significant family history includes a brother who from a massive heart attack, another brother who required a sextuple coronary artery bypass, and a third brother with a platelet disorder described as a blood cancer. The patient's mother had colon cancer in her 60s, and both the mother and grandmother had dementia. The patient's father had alcohol-related cardiomyopathy. For health maintenance, the patient's mammogram is up to date and a colonoscopy in June 2024 revealed only internal hemorrhoids with a recommended 10-year follow-up, though this interval is being reassessed due to family history. The patient began taking a compounded GLP-1 agonist for weight loss in September, obtained through a compounding pharmacy. Health Maintenance The patient's TSH was mildly elevated at 4.62, which is not severe enough for medication but warrants monitoring; it will be rechecked with the current blood work. For vitamin D deficiency, the patient was again advised to take 2755-5295 units daily, as adherence has been poor. The mild thrombocytopenia (platelet count 142) will be monitored with follow-up blood work; it was noted that paroxetine use may be a contributing factor. We discussed the shingles vaccine due to two recent episodes; the patient was informed it does not have an egg contraindication and will consider it. A new lab request was placed for current blood work and another for a cholesterol check in three months. 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 - Diet: Follows a vegan diet. - Substance Use: Reports recently stoppi ng frequent wine consumption due to next-day effects and will now occasionally have seltzer with alcohol. - Exercise: Acknowledges lack of exercis e and not walking much is a significant problem. - Weight Management: Self-initiated a co mpounded GLP-1 agonist in September for weight loss with a goal of reaching 160 lbs. Results - Lab Results from January 2024: - CBC: No anemia with mild thrombocytope junior (platelet count 142). - CMP: Normal electrolytes, renal functi on, liver function, and calcium. - Glucose: Normal at 99; Hemoglobin A1c was also normal. - Lipid Panel: High cholesterol with tot al cholesterol 241, LDL 161. - Vitamin B12: Low at 214. - Vitamin D: Low at 11.4. - TSH: Mildly elevated at 4.62. - Imaging/Procedures: - Lower Back X-ray: No evidence of signi ficant SI joint dysfunction. - Colonoscopy (June 2024): Normal with internal hemorrhoids only. [facility] Medical History (Updated 02/06/25 @ 11:46 by Sha Cloud MD) Impaired glucose tolerance Hyperlipidemia Seizure PUD (peptic ulcer disease) Family history of colon cancer Class 1 obesity with body mass index (BMI) of 31.0 to 31.9 in adult Obese Anxiety and depression Surgical History History of esophagogastroduodenoscopy (EGD) Hx of oral surgery Hx of colonoscopy Family History (Updated 02/06/25 @ 11:43 by Sha Cloud MD) Mother Colon cancer Father Skin cancer Brother Heart attack, Onset Age: 40 CAD (coronary artery disease) Maternal Grandfather Heart attack Sister CAD (coronary artery disease) Social History Housing: Apartment Alcohol intake: current Alcohol intake frequency: holidays/special occasions only Comment: once Q 4 months 2 drinks Patient Tobacco Use Status: Never used Tobacco Tobacco use type: Cigarette e-Cigarette/Vaping Use: Never Used Second Hand Smoke Exposure: No service: No Current occupational status: employed Cognitive needs: No Hearing needs: No Vision needs: No Questionnaire PHQ-9 Over the last 2 weeks, how often have you been bothered by any of the following problems? 1. Little interest or pleasure in doing things: more than half the days 2. Feeling down, depressed, or hopeless: several days 3. Trouble falling or staying asleep, or sleeping too much: several days 4. Feeling tired or having little energy: several days 5. Poor appetite or overeating: several days 6. Feeling bad about yourself - or that you are a failure or have let yourself or your family down: not at all 7. Trouble concentrating on things, such as reading the newspaper or watching television: not at all 8. Moving or speaking so slowly that other people could have noticed. Or the opposite - being so fidgety or restless that you have been moving around a lot more than usual: not at all 9. Thoughts that you would be better off or of hurting yourself in some way: not at all Total score: 6 Depression Screening Interpretation: Positive Depression Screening Done: Yes Source: Developed by Drs. Soren Dennison, Puma Lord and colleagues, with an educational libia from [employer]. Thrive Questionnaire Date Thrive assessed: 02/06/25 JOHANNY-7 AMB Questionnaire JOHANNY-7 Date JOHANNY - 7 assessed: 02/06/25 Feeling nervous, anxious, or on edge: 0 = Not at all Not being able to stop or control worryin = Not at all Worrying too much about different things: 0 = Not at all Trouble relaxin = Not at all Being so restless that it is hard to sit still: 0 = Not at all Becoming easily annoyed or irritable: 0 = Not at all Feeling afraid as if something awful might happen: 0 = Not at all Total JOHANNY-7 score (0-4 normal; 5-9 mild; 10-14 moderate; 15-21 severe): 0 Source: Developed by Drs. Soren Dennison, Chelsea Mcqueen, Puma Gurrola and colleagues, with an educational libia from [employer]. Review of Systems Narrative Review of Systems - Musculoskeletal: Reports a history of right shoulder and lower back pain. - Skin: Reports two episodes of shingles in the last year. - Allergic/Immunologic: Reports allergies to eggs and mushrooms. Physical exam (Primary Care) Vital Signs: Last Vital Signs Pulse 60 02/06/25 11:27 BP 132/78 02/06/25 11:27 Pulse Ox 95 02/06/25 11:27 Oxygen Delivery Method Room Air 02/06/25 11:27 BMI result Body Mass Index 33.4 Tobacco/Smoking Status: Tobacco use Status Tobacco use date assessed 02/06/25 02/06/25 11:37 Patient Tobacco Use Status Never used Tobacco 02/06/25 11:37 Tobacco use type Cigarette 02/06/25 11:37 e-Cigarette/Vaping Use Never Used 02/06/25 11:37 PHQ-9: PHQ-9 Score PHQ-9: Total score 6 02/06/25 11:37 Depression Screening Interpretation: Positive Thrive Assessment: Date of Thrive Assessment Date Thrive assessed 02/06/25 02/06/25 11:37 Narrative Physical Exam - Vitals: Blood pressure is noted to be very good. - General Appearance: Obese individual, with a BMI of 33. Const General: alert; No acute distress Eyes Conjunctivae: conjunctivae normal Resp Auscultation: clear to auscultation bilaterally Cardio Rate: regular rate Rhythm: regular rhythm GI Inspection: Yes normal to inspection Extrem General: Yes normal to inspection and No edema Coding Level of Care Code Est Pt Level 4 (59537) Complex visit Add On G2211 Diagnoses Pure hypercholesterolemia E78.00 Hyperlipidemia type: pure hypercholesterolemia Obesity (BMI 30.0-34.9) E66.9 TSH elevation R79.89 Vitamin D deficiency E55.9 Vitamin B12 deficiency E53.8 Assessment & Plan Assessment & Plan (1) Hyperlipidemia: Code(s): E78.5 - Hyperlipidemia, unspecified Category: Medical Qualifiers: Hyperlipidemia type: pure hypercholesterolemia Qualified Code(s): E78.00 - Pure hypercholesterolemia, unspecified Plan: Avoid fried foods, chicken skin, eggs, butter margarine, pastries and meat. Be it pork or beef they have a lot of cholesterol LDL goal of less than 130 and triglyceride of less than 150 (2) Obesity (BMI 30.0-34.9): Code(s): E66.9 - Obesity, unspecified Category: Medical Plan: Diet and exercise (3) TSH elevation: Code(s): R79.89 - Other specified abnormal findings of blood chemistry Category: Medical Plan: patient is advised to repeat the thyroid test (4) Vitamin D deficiency: Code(s): E55.9 - Vitamin D deficiency, unspecified Category: Medical Plan: Patient is on vitamin-D (5) Vitamin B12 deficiency: Code(s): E53.8 - Deficiency of other specified B group vitamins Category: Medical Plan Plan Patient was informed and verbally consented to the use of an ambient scribe for clinic note documentation during this visit. 1. Hypercholesterolemia The patient's LDL is elevated at 161, and there is a significant family history of cardiovascular disease. The patient is averse to statin therapy and wishes to first try a natural supplement containing pomegranate peel extract and turmeric. We discussed that turmeric can interact with other medications via the cytochrome P450 pathway and may increase bleeding risk when taken with paroxetine. The plan is to obtain baseline fasting labs now and then recheck cholesterol in three months after starting the supplement. A letter of medical necessity for the supplement was provided to the patient for a flexible spending account. 2. Obesity The patient is obese with a BMI of 33 and has been taking a compounded GLP-1 agonist since September, purchased from a compounding pharmacy. A letter of medical necessity was provided for this medication for the patient's flexible spending account. Continued focus on lifestyle changes, including diet and increased physical activity, was encouraged. Discussion Notes I discussed the patient's lab results from January 2024, focusing on the hypercholesterolemia, low vitamin D, mild thrombocytopenia, and subclinical hypothyroidism. Given the strong family history of premature cardiovascular di sease, I emphasized the importance of lowering the LDL cholesterol, which is currently 161. The patient expressed a strong aversion to statin medications and requested to try a natural supplement first. I explained the potential risks associated with the supplement's ingredients, specifically that turmeric can affect the metabolism of other drugs and increase bleeding risk when combined with the patient's paroxetine. We agreed on a plan to check baseline labs now, start the supplement, and re-evaluate cholesterol in three months. I provided letters of medical necessity for both the cholesterol supplement and the patient's compounded weight loss medication (GLP-1 agonist) for use with a flexible spending account. We also discussed the importance of lifestyle modifications, including a healthy diet and regular exercise, as curtis components of risk reduction. I educated the patient on the benefits of the shingles vaccine following two recent episodes and confirmed it is safe despite allergies to eggs and mushrooms. The patient was instructed to complete the ordered blood work and follow up to review the results. Patient Instructions - Please go for your blood work as soon as you are able. You must be fasting (nothing to eat or drink except water for 8-12 hours beforehand). - You will need to repeat a cholesterol test in 3 months after starting your new supplement. - Continue to take vitamin D, 1000 to 2000 units daily. - It is very important to improve your diet and increase your physical activity to help lower your cholesterol and manage your weight. - Consider getting the shingles vaccine (Shingrix), which is given in two shots. It is available at the pharmacy. - Follow up to discuss the results of your blood tests. - I have provided you with a letter for your flexible spending account to cover the cost of your cholesterol supplement and weight loss medication. Orders: Orders Lipid Panel 3 Months E78.00 - Pure hypercholesterolemia, unspecified Comprehensive Met. Panel 3 Months E78.00 - Pure hypercholesterolemia, unspecified
--- OUTSIDE RECORDS SUMMARY | 2025-02-06 17:34 | XMS_ITS | Clinical Summary ---
Author Organization [facility] Address [address] [place] [id number] Phone Care Team Providers Care Security Site Supervisor Name Role Phone Gume Paris MD Primary Care Provider [phone] Allergies Active Allergy Reactions Criticality Noted Date Comments Egg Anaphylaxis High 01/02/2023 Metronidazole Hives 01/02/2023 Other Hives 01/02/2023 Mushrooms Medications PARoxetine (PAXIL) 40 MG tablet Take 40 mg by mouth daily. 0 03/09/2018 Active clonazePAM (KLONOPIN) 1 MG tablet Take 1 mg by mouth as needed. 10/27/2022 Active hydrOXYzine (ATARAX) 50 MG tablet Take 50 mg by mouth 3 (three) times a day as needed. 10/27/2022 Active cetirizine (ZYRTEC) 10 MG tablet Take 10 mg by mouth daily. Active Social History Tobacco Use Types Packs/Day Years Used Date Smoking Tobacco: Never Smokeless Tobacco: Never Tobacco Cessation:Counseling Given: Not Answered Education Answer Date Recorded Are you interested in more education? Not on sonu e 07/15/2022 Are you concerned about learning? Not on file 07/15/2022 No 07/15/2022 No 07/15/2022 Digital Access Answer Date Recorded No 08/13/2022 No 08/13/2022 Reliable internet access at home? Not on file 08/13/2022 Device with a working camera? Not on file Comments Unknown Sex and Gender Information Value Date Recorded Sex Assigned at Not on file Legal Sex Female 4:25 PM EST Gender Identity Not on file Sexual Orientation Not on file Last Filed Vital Signs Vital Sign Reading Time Taken Comments Blood Pressure 156/91 01/07/2023 4:17 PM EDT Pulse 88 01/07/2023 4:17 PM EDT Temperature 36.3 C (97.4 F) 01/07/2023 4:17 PM EDT Respiratory Rate 16 01/07/2023 4:17 PM EDT Oxygen Saturation 97% 01/07/2023 4:17 PM EDT Inhaled Oxygen Concentration - - Weight 86.2 kg (190 lb) 01/07/2023 4:17 PM EDT Height 171.5 cm (5' 7.5 ) 01/07/2023 4:17 PM EDT Body Mass Index 29.32 01/07/2023 4:17 PM EDT Plan of Treatment Health Maintenance Due Date Last Done Comments Adult Td,Tdap Booster 1967 LIPID PANEL 1967 DEPRESSION SCREENING 1979 HEPATITIS C SCREENING 12/06/1985 HIV ONE-TIME SCREENING (18-6 5 YEARS) 12/06/1985 PAP SMEAR 12/06/1988 SCREENING FOR DIABETES 12/06/2002 MAMMOGRAM 2007 COLOGUARD 12/06/2012 COLONOSCOPY 12/06/2012 COLORECTAL CANCER SCREENING 12/06/2012 FIT TEST 12/06/2012 FOBT 12/06/2012 SIGMOIDOSCOPY 12/06/2012 VIRTUAL COLONOSCOPY 12/06/2012 PNEUMOCOCCAL VACCINES (50+ y ears) (1 of 1 - PCV) 12/06/2017 ZOSTER VACCINES (1 of 2) 12/06/2017 INFLUENZA VACCINE (#1) 2024 COVID-19 VACCINE ( - 2024-2 6 season) 2024 RSV VACCINE (1 - 1-dose 75+ series) 12/06/2042 SMOKING STATUS SCREENING (On ce After 26 Yrs) Completed 01/02/2023 HEPATITIS A VACCINES Aged Out No long er eligible based on patient's age to complete this topic HIB VACCINES Aged Out No longer eligi ble based on patient's age to complete this topic MENINGOCOCCAL VACCINES (ACWY) Aged Out No longer eligible based on patient's age to complete this topic MENINGOCOCCAL VACCINES (B) Aged Out N o longer eligible based on patient's age to complete this topic Medical Devices Not on file Insurance [employer] [place] OUT OF STATE PPO [employer] [place] [place] OUT OF STATE PPO [employer] [place] [place] OUT OF STATE PPO [place] [place] OUT OF STATE PPO BL[place] OUT OF STATE PPO BLUE CROSS [facility] [place] OUT OF STATE O [employer] [place] OUT OF STATE O picsell BENEFITS ADMINISTRATORS [facility] PPO picsell BENEFITS ADMINISTRATORS [facility] OUT OF STATE PPO [facility] BENEFITS ADMINISTRATORS Care Teams Security Site Supervisor Relationship Specialty Start Date End Date Gume Paris MD [address] [place] [address] [place] [id number] PCP - General Internal Medicine 02/23/18 Additional Source Comments The information contained in this document represents components of the legal health record. It is not the complete legal health record.[facility]
== END 2025-02-06 13:35 | disposition home or self-care (01) ==
LOC: HO.HMCH 11:21
PROVIDERS: PCP Internal Medicine; Visit Provider Internal Medicine
DX: E78.00 Pure hypercholesterolemia, unspecified (principal); E66.9 Obesity, unspecified; R79.89 Other specified abnormal findings of blood chemistry; E55.9 Vitamin D deficiency, unspecified; E53.8 Deficiency of other specified B group vitamins; Z68.33 Body mass index [BMI] 33.0-33.9, adult